=== PATIENT | female | born 1945 | race Hispanic/Latino ===

== ENCOUNTER 2016-09-24 10:18 | Outpatient (CLI) | payer MEDICARE, OTHER | END 2016-09-24 10:19 | disposition home or self-care (01) | LOC: LABHHL 10:18 → LAB 10:18 → LABHHL 10:19 | PROVIDERS: ATTEND Internal Medicine | DX: I10 Essential (primary) hypertension (principal); E78.2 Mixed hyperlipidemia; M81.0 Age-related osteoporosis without current pathological fracture; E03.8 Other specified hypothyroidism; Z79.899 Other long term (current) drug therapy | CPT/HCPCS: 36415; 80061; 84443 ==

== ENCOUNTER 2017-10-15 12:35 | Outpatient (CLI) | payer MEDICARE, OTHER ==
--- NOTE | 2017-10-15 16:41 | XRay Report ---
XRAY CERVICAL SPINE WITH OBLIQUES FIVE VIEWS: 10/15/17 12:35:00 CLINICAL: Neck pain. FINDINGS: Normal vertebral body alignment through T1. Moderate multilevel degenerative disc disease from C3-4 through C6-7. Decreased height of the C4, C5-T6 and T7 vertebral bodies but no fracture lines. Anterior osteophytes and disc space narrowing at C4-5, C5-6 and C6-7. Mild left neural foraminal narrowing at C5-6 and C6-7 and mild to moderate neural foraminal narrowing on the right at C4-5 and C5-6. Normal odontoid and C1. Normal soft tissues and airway. IMPRESSION: Moderate degenerative disc disease from C3-4 through C6-7. Bilateral neural foraminal narrowing as described.
== END 2017-10-15 12:36 | disposition home or self-care (01) ==
LOC: XRAY 12:35
PROVIDERS: ATTEND Internal Medicine
DX: M47.892 Other spondylosis, cervical region (principal)
CPT/HCPCS: 72050

== ENCOUNTER 2018-12-15 09:43 | Outpatient (CLI) | payer MEDICARE, OTHER ==
--- NOTE | 2018-12-15 16:03 | Mammography Report ---
BONE DEXA. History: M81.0 Procedure: 3 site bone densitometry performed on a Hologic scanner. Comparison: None Findings: The BMD of the lumbar spine is 0.913 gm/cm2 with a T-score of +1.2 and a Z-score of +1.1 . The bone mineral density (BMD) of the left femoral neck is 0.631 gm/cm2 with a T-score of -2.0 and a Z-score of 0. The BMD of the total left hip is 0.742 gm/cm2 with a T-score of -1.6 and a Z-score of 0. Impression: WHO Classification: Normal with average fracture risk based on lumbar spine measurements. WHO classification: Osteopenia with increased fracture risk based on left hip measurements. The FRAX 10 year fracture probability for a major osteoporotic fracture is 13%. The FRAX 10 year fracture probability for hip fracture is 2.8% Pharmacological treatment, if not already prescribed should be started. A followup bone density test is recommended in one year to monitor response to therapy. Note:FRAX version 3.01. Fracture probability calculated for an untreated patient. Fracture probabilit y may be lower if the patient has received treatment. RECOMMENDATION: Clinical correlation and routine screening. Definitions: BMD = Bone Mineral Density T score = BMD related to mean peak bone mass of young adult ([place] expressed an standard deviation) Z score = Age-matched BMD expressed in SD World health organization (WHO) diagnostic criteria: Normal: T score greater than -1 SD. Osteopenia: T score between - SD and -2.4 SD. Osteoporosis: T score -2.5 SD or below Note: BMD is not the only risk factor for fracture; also consider factors such as the patient's age, risk of falling, previous osteoporotic fracture, family history of osteoporotic fractures, smoking st atus and low body weight. All treatment decisions require clinical judgment and consideration of individual patient factors inc luding patient preferences, comorbidities, previous drug use and risk factors not captured in the FRA X model (e.g. Frailty, falls, vitamin D deficiency, increased bone turnover, interval significant dec line in BMD). A more detailed DEXA Bone Densitometry report is available upon request. Signer Name: Jmienez Tena MD Signed: 12/15/2018 3:59 PM Workstation Name: [id number]
== END 2018-12-15 09:44 | disposition home or self-care (01) ==
LOC: MAMMO 09:43
PROVIDERS: ATTEND Internal Medicine
DX: M81.0 Age-related osteoporosis without current pathological fracture (principal)
CPT/HCPCS: 77080

== ENCOUNTER 2019-05-10 10:46 | Outpatient (CLI) | payer MEDICARE, OTHER ==
[2019-05-10 12:14] LABS: Basophils # (Auto) 0.1 K/mm3 (0.0-0.1); Basophils % (Auto) 0.8 % (0.0-1.8); Eosinophils # (Auto) 0.1 K/mm3 (0.0-0.4); Hematocrit 45.3 % (30.3-42.9); Lymphocytes % (Auto) 27.4 % (13.4-35.0); Mean Corpuscular HGB Conc 33 % (30-34); Mean Corpuscular Volume 92 fl (79-97); Monocytes # (Auto) 0.6 K/mm3 (0.0-0.8); Monocytes % (Auto) 7.9 % (0.0-7.3); Platelet Count 221 K/mm3 (140-440); Red Cell Distribution Width 14.2 % (13.2-15.2)
[2019-05-10 12:33] LABS: Bacteria,Urine 1+ /HPF (Negative); Bilirubin,Urine NEG (Negative); Blood,Urine NEG (Negative); Calcium Oxalate Crystals,Urine 2+; Color,Urine Yellow (Yellow); Mucus,Urine 3+ /HPF; Protein,Urine <15 mg/dL mg/dL (Negative); Urobilinogen,Urine < 2.0 mg/dL (<2.0)
[2019-05-10 12:34] LABS: Alanine Aminotransferase 9 units/L (7-56); Albumin 4.1 g/dL (3.9-5); BUN/Creatinine Ratio 18; Blood Urea Nitrogen 11 mg/dL (7-17); Calcium 9.4 mg/dL (8.4-10.2); Chol/HDL Ratio 3.17 %; HDL Cholesterol 58 mg/dL (40-59); Hemolysis Index 1; LDL Cholesterol,Direct 111 mg/dL (50-130)
== END 2019-05-10 10:47 | disposition home or self-care (01) ==
LOC: LAB 10:46
PROVIDERS: ATTEND Internal Medicine
DX: E78.2 Mixed hyperlipidemia (principal); E03.9 Hypothyroidism, unspecified; R73.9 Hyperglycemia, unspecified; Z55.9 Problems related to education and literacy, unspecified
CPT/HCPCS: 36415; 80053; 80061; 81001; 82306; 82607; 83036; 84443; 85025

== ENCOUNTER 2019-10-04 12:11 | Outpatient (CLI) | payer MEDICARE, OTHER ==
--- NOTE | 2019-10-04 14:21 | XRay Report ---
CHEST 2 VIEWS INDICATION: Cough. COMPARISON: None FINDINGS: Support devices: None. Heart: Within normal limits. Lungs/pleura: The lungs are mildly hyperinflated suggesting mild to moderate emphysematous changes. N o evidence for infiltrate, pleural effusion or pneumothorax. Additional findings: None. IMPRESSION: No acute findings. Emphysematous changes. LUMBOSACRAL SPINE 3 VIEWS INDICATION: M54.5 LOW BACK PAIN. COMPARISON: None. IMPRESSION: There is mild dextro curvature to the upper lumbar spine. There is 3 mm anterolisthesis of L4 with respect to L5. Normal alignment otherwise. Disc space height appears preserved. Mild to m oderate diffuse facet arthropathy is evident. No acute osseous or soft tissue abnormality. Signer Name: Sundeep Vallejo Jr, MD Signed: 10/04/2019 2:17 PM Workstation Name: [id number]
== END 2019-10-04 12:12 | disposition home or self-care (01) ==
LOC: XRAY 12:11
PROVIDERS: ATTEND Internal Medicine
DX: M43.16 Spondylolisthesis, lumbar region (principal); M47.816 Spondylosis without myelopathy or radiculopathy, lumbar region; J98.11 Atelectasis; J43.8 Other emphysema
CPT/HCPCS: 71046; 72100